=== PATIENT | female | born 1965 | race Two or more races ===

== ENCOUNTER 2024-06-14 16:53 | Inpatient (IN) | payer MEDICAID ==
[~2024-06-14] VITALS: Ht 157.5 cm; Wt 103.9 kg
[2024-06-14 17:26] LABS: Basophils # (auto) 0.1 10 ^3/uL (0-0.2); Basophils % (auto) 0.8 % (0.0-2.0); Eosinophils # (auto) 0.7 10 ^3/uL (0-0.8); Eosinophils % (auto) 10.7 % (0.0-7.0); Hematocrit 46.2 % (36.0-46.0); Hemoglobin 15.8 g/dL (12.2-16.2); Lymphocytes # (auto) 2.5 10 ^3/uL (0.4-5.4); Lymphocytes % (auto) 38.3 % (10.0-50.0); Mean Corpuscular Hemoglobin 30.9 pg (28.0-32.0); Mean Corpuscular Hgb Conc. 34.3 g/dL (32.0-36.0); Mean Corpuscular Volume 90.3 fL (80.0-100.0); Monocytes # (auto) 0.6 10 ^3/uL (0-1.3); Monocytes % (auto) 9.1 % (0.0-12.0); Neutrophils # (auto) 2.7 10 ^3/uL (1.6-8.6); Neutrophils % (auto) 41.1 % (37.0-80.0); Nucleated Red Blood Cells % 0.6 %; Platelet Count (auto) 287 10^3/uL (140-450); Red Blood Cells 5.11 10^6/uL (4.0-5.20); Red Cell Distribution Width 13.2 % (11.8-14.3); White Blood Cell 6.5 10^3/uL (4.4-10.8)
[2024-06-14] MEDS: ASPirin 325 MG TAB PO ONE (17:35)
[2024-06-14] MEDS: NITROGLYCERIN 0.4 MG SL TAB SL ONE (17:35)
[2024-06-14 17:45] LABS: Alanine Aminotransferase 39 U/L (7-40); Alkaline Phosphatase 99 U/L (46-116); Anion Gap 8 (5-15); Aspartate Aminotransferase 25 U/L (13-40); BUN/Creatinine Ratio 21.7 (10.0-20.0); Blood Urea Nitrogen 18 mg/dL (9-23); Calcium 10.3 mg/dL (8.7-10.4); Carbon Dioxide 27 mmol/L (20-31); Chloride 105 mmol/L (98-107); Glucose 86 mg/dL (74-106); Potassium 3.9 mmol/L (3.5-5.1); Sodium 140 mmol/L (136-145)
[2024-06-14] MEDS ORDERED: ONDANSETRON HCL 4 MG/2 ML VIAL IV PRN (17:45)
[2024-06-14] MEDS ORDERED: NITROGLYCERIN 0.4 MG SL TAB SL PRN ×2 (17:45→18:00)
[2024-06-14] MEDS ORDERED: MORPHINE SULFATE INJ 2 MG/ml SYRG IV PRN (17:45)
[2024-06-14 17:46] LABS: Albumin 4.8 g/dL (3.2-4.8); Bilirubin, Total 0.7 mg/dL (0.2-1.0); Total Protein 7.8 g/dL (5.7-8.2)
[2024-06-14 17:53] LABS: Urine Bacteria FEW /hpf (None Seen); Urine Blood Negative /uL (Negative); Urine Clarity Clear (Clear); Urine Color Light-Yellow (Yellow); Urine Protein, UAD Negative (Negative); Urine Urobilinogen Normal (Negative); Urine WBC 1 /hpf (0 - 5); Urine pH 6.5 (5.0-9.0)
[2024-06-14 20:10] VITALS: PULSE 62; RESP 16; O2SAT 96
[2024-06-14 21:30] VITALS: BP 136/63; PULSE 65; RESP 19; TEMP 97.6; O2SAT 94
[2024-06-14 21:55] VITALS: PULSE 63
[2024-06-15] VITALS (7 sets, daily range): BP systolic 133–168; BP diastolic 55–76; PULSE 55–71; RESP 16–21; TEMP 37.1; O2SAT 95–97
[2024-06-15 07:07] LABS: Alanine Aminotransferase 31 U/L (7-40); Albumin 4.2 g/dL (3.2-4.8); Alkaline Phosphatase 80 U/L (46-116); Anion Gap 6 (5-15); Blood Urea Nitrogen 15 mg/dL (9-23); Calcium 9.8 mg/dL (8.7-10.4); Carbon Dioxide 29 mmol/L (20-31); Chloride 106 mmol/L (98-107); Glucose 108 mg/dL (74-106); Potassium 3.8 mmol/L (3.5-5.1); Sodium 141 mmol/L (136-145)
[2024-06-15 07:08] LABS: Aspartate Aminotransferase 20 U/L (13-40); Total Protein 7.1 g/dL (5.7-8.2)
[2024-06-15 07:11] LABS: Basophils # (auto) 0 10 ^3/uL (0-0.2); Basophils % (auto) 0.7 % (0.0-2.0); Eosinophils # (auto) 0.6 10 ^3/uL (0-0.8); Eosinophils % (auto) 11.1 % (0.0-7.0); Hematocrit 43.3 % (36.0-46.0); Hemoglobin 15.2 g/dL (12.2-16.2); Lymphocytes # (auto) 2.2 10 ^3/uL (0.4-5.4); Lymphocytes % (auto) 39.1 % (10.0-50.0); Mean Corpuscular Hemoglobin 31.4 pg (28.0-32.0); Mean Corpuscular Hgb Conc. 35.2 g/dL (32.0-36.0); Mean Corpuscular Volume 89.3 fL (80.0-100.0); Monocytes # (auto) 0.5 10 ^3/uL (0-1.3); Monocytes % (auto) 9.3 % (0.0-12.0); Neutrophils # (auto) 2.3 10 ^3/uL (1.6-8.6); Neutrophils % (auto) 39.8 % (37.0-80.0); Nucleated Red Blood Cells % 0.3 %; Platelet Count (auto) 225 10^3/uL (140-450); Red Blood Cells 4.85 10^6/uL (4.0-5.20); Red Cell Distribution Width 13.4 % (11.8-14.3); White Blood Cell 5.7 10^3/uL (4.4-10.8)
[2024-06-15] MEDS ORDERED: UBRO100T2 PO (16:14)
[2024-06-15] MEDS: SUMAtriptan SUCCINATE 25 MG TAB PO ONE (17:35)
== END 2024-06-15 18:30 | disposition home or self-care (01) | DRG 199 ==
LOC: ER 16:57 → TELE 17:44 → TELE-WESTW 21:22
PROVIDERS: ADMIT Nurse Practitioner; ATTEND Nurse Practitioner
DX: I16.0 Hypertensive urgency (principal); E66.01 Morbid (severe) obesity due to excess calories; G43.909 Migraine, unspecified, not intractable, without status migrainosus; I10 Essential (primary) hypertension; M79.7 Fibromyalgia; Z82.49 Family history of ischemic heart disease and other diseases of the circulatory system; Z68.41 Body mass index [BMI] 40.0-44.9, adult
CPT/HCPCS: 36415; 71045; 80053; 81001; 84484; 85025; 93005; 93306; 99291; G0378

== ENCOUNTER 2025-05-19 14:07 | Emergency (ER) | payer MEDICAID ==
[~2025-05-19] VITALS: Ht 157.5 cm; Wt 88.4 kg
[~2025-05-19 14:07] MED LIST: UBRO100T2 PO
[2025-05-19 14:08] VITALS: BP 158/65; PULSE 73; RESP 16; TEMP 98.5; O2SAT 97
--- NOTE | 2025-05-19 14:35 | ED.PDOC ---
History of Present Illness(SKN HPI Comments A 59 YEAR OLD FEMALE PRESENTS TO THE ED WITH COMPLAINT OF RASH. PATIENT STATES SHE HAS BEEN EXPERIENCING A RASH ON HER BILATERAL ARMS FOR THE PAST 6 DAYS. PATIENT REPORTS SHE WENT TO AN URGENT CARE 3 DAYS AGO WHERE SHE WAS PRESCRIBED TRIAMCINOLONE CREAM, BUT NOTES THERE HAS BEEN NO IMPROVEMENT IN HER RASH. PATIENT DENIES FEVER, CHILLS, SHORTNESS OF BREATH, CHEST PAIN, ABDOMINAL PAIN, NAUSEA, VOMITING, HEADACHE, OR OTHER COMPLAINTS. NO OTHER SYMPTOMS OR MODIFYING FACTORS AT THIS TIME. PATIENT IS ALERT, ORIENTED X 4, AND HAS STEADY GAIT. Chief Complaint: Rash Time Seen by MD: 14:13 History of Present Illness: Nurses Notes, Medications, Allergies Allergies: Coded Allergies: NO KNOWN ALLERGIES (Unverified , 11/28/23) Home Meds Active Scripts Hydroxyzine Hcl (Hydroxyzine Hcl) 50 Mg Tab, 1 TAB PO BID, #30 TAB Prov:JACOB VELIZ 05/19/25 Prednisone (Prednisone) 20 Mg Tab, 60 MG PO DAILY, #24 MG Prov:JACOB VELIZ 05/19/25 Ubrogepant (Ubrelvy) 100 Mg Tab, 100 MG PO DAILY, #12 TAB Prov:CARLOS A MORILLO NP 06/15/24 Information Source: Patient Mode of Arrival: Ambulatory Severity: Mild, Moderate Timing: Days Duration: Since onset, Days Prehospital treatment: None Location: Arm (BILATERAL ARMS) Mechanism: Spontaneous Onset Developed: Rash Occurence: Indoors Object: None Condition of Object: None Wound Type: None Immunization Status of Animal: Current, NA Tetanus: UTD, Unknown History of: None Associated Signs and Symptoms: Redness Past Medical History PAST MEDICAL HISTORY: HTN Surgical History: WORM PICKER History: Denies all WORM PICKER Hx Family History Family History: Reviewed,noncontributory to illness Social History Smoker: Non-Smoker Alcohol: Denies ETOH Use Drugs: Denies Drug Use Lives In: Home Constitutional: denies: chills, diaphoresis, fatigue, fever, malaise, sweats, weakness, others EENTM: denies: blurred vision, double vision, ear bleeding, ear discharge, ear drainage, ear pain, ear ringing, eye pain, eye redness, hearing loss, mouth pain, mouth swelling, nasal discharge, nose bleeding, nose congestion, nose pain, photophobia, tearing, throat pain, throat swelling, voice changes, others Respiratory: denies: cough, hemoptysis, orthopnea, SOB at rest, shortness of breath, SOB with excertion, stridor, wheezing, others Cardiovascular: denies: chest pain, dizzy spells, diaphoresis, Dyspnea on exertion, edema, irregular heart beat, left arm pain, lightheadedness, palpitations, PND, syncope, others Gastrointestinal: denies: abdomen distended, abdominal pain, blood streaked bowels, constipated, diarrhea, dysphagia, difficulty swallowing, hematemesis, melena, nausea, poor appetite, poor fluid intake, rectal bleeding, rectal pain, vomiting, others Genitourinary: denies: abnormal vagina bleeding, burning, dyspareunia, dysuria, flank pain, frequency, hematuria, incontinence, pain, , vagina discharge, urgency, others Neurological: denies: dizziness, fainting, headache, left sided numbness, left sided weakness, numbness, paresthesia, pre-existing deficit, right sided numbness, right sided weakness, seizure, speech problems, tingling, tremors, weakness, others Musculoskeletal: denies: back pain, gout, joint pain, joint swelling, muscle pain, muscle stiffness, neck pain, others Integumetry: reports: lumps, rash; denies: bruises, change in color, change in hair/nails, dryness, laceration, lesions, wounds, others Allergic/Immunocompromised: reports: Hives, Itching; denies: Difficulty Healing, Frequent Infections, others Hematologic/Lymphatic: denies: anemia, blood clots, easy bleeding, easy bruising, swollen glands, others Endocrine: denies: excessive hunger, excessive sweating, excessive thirst, excessive urination, flushing, intolerance to cold, intolerance to heat, unexplained weight gain, unexplained weight loss, others Psychiatric: denies: anxiety, bipolar disorder, depression, hopeless, panic disorder, schizophrenia, sleepless, suicidal, others All Other Systems: Reviewed and Negative Physical Exam General Appearance: No Apparent Distress, Obese HEENT: Normal ENT Inspection, PERRL/EOMI, Pharynx Normal, TMs Normal Neck: Full Range of Motion, Non-Tender, Normal, Normal Inspection Respiratory: Chest Non-Tender, Lungs Clear, No Accessory Muscle Use, No Respiratory Distress, Normal Breath Sounds Cardiovascular: No Edema, No JVD, No Murmur, No Gallop, Normal Peripheral Pulses, Regular Rate/Rhythm Breast Exam: Deferred Gastrointestinal: No Organomegaly, Non Tender, No Pulsatile Mass, Normal Bowel Sounds, Soft Genitalia: Deferred Pelvic: Deferred Rectal: Deferred Extremities: No calf tenderness, Normal capillary refill, Normal inspection, Normal range of motion, Non-tender, No pedal edema Musculoskeletal : Apperance: Normal Neurologic: Alert, facility rehab director II-XII nml as Tested, No Motor Deficits, Normal Affect, Normal Mood, No Sensory Deficits Cerebellar Function: Normal Reflexes: Normal Skin: Dry, Rash (ERYTHEMA SKIN RASH WITH HIVES ON BILATERAL UPPER EXTREMITY, NO TENDERNESS AND SWELLING. ), Warm Peripheral Pulses: 2+ carotid (R), 2+ carotid (L) Lymphatic: No Adenopathy Was a procedure done? Was a procedure done?: No Differential Diagnosis (INTG) Differential Diagnosis: N/A Differential Diagnosis: Atopic dermatitis, Contact Dermatitis, Tinea, Urticaria, Other (ALLERGIC REACTION) Differential Diagnosis: N/A Abscess: N/A Differential Diagnosis: N/A X-Ray, Labs, Meds, VS Vital Signs Date Time Temp Pulse Resp B/P (MAP) Pulse Ox O2 Delivery O2 Flow Rate FiO2 05/19/25 14:08 98.5 73 16 158/65 97 98.5 X-Ray, Labs, Meds, VS Comment EXTERNAL MEDICAL RECORDS REVIEWED: [NONE] INDEPENDENT HISTORIANS: [NONE] SOCIAL DETERMINANTS OF HEALTH: [NONE] LABS ORDERED: NONE REVIEWED AND INTERPRETED RESULTS: NONE IMAGING ORDERED: NONE TREATMENTS ORDERED: EPINEPHRINE 0.3 MG IM, SOLU-MEDROL 125 MG IM PROCEDURES PERFORMED: NONE CRITICAL CARE TIME: NONE I HAVE DISCUSSED THE PATIENT WITH THE ATTENDING PHYSICIAN DR. ELAM AND HE AGREES WITH THE PATIENT'S PLAN OF CARE AND DISPOSITION. BASED ON HISTORY OF PRESENT ILLNESS, AND PHYSICAL EXAM, PATIENT WILL BE DISCHARGED HOME. DISCUSSED PLAN FOR DISCHARGE HOME WITH RX [PREDNISONE AND VISTARIL 50MG]. MEDICATION WARNINGS GIVEN. SHARED DECISION MAKING: PATIENT INSTRUCTED TO FOLLOW UP WITH PRIMARY CARE PROVIDER IN 1-2 DAYS FOR RE-EVALUATION OF SYMPTOMS. PATIENT VERBALIZES UNDERSTANDING TO RETURN TO ED FOR NEW OR WORSENING SYMPTOMS OR IF FOLLOW UP WITH PCP CANNOT BE OBTAINED. PATIENT FEELS COMFORTABLE GOING HOME AT THIS TIME. ALL QUESTIONS ADDRESSED AT TIME OF DISCHARGE. Time of 1ST Reevaluation: 15:00 Reevaluation 1ST: Improved Patient Education/Counseling: Diagnosis, Treatment, Need For Follow Up Family Education/Counseling: Diagnosis, Treatment, Need For Follow Up Medical Screening: No EMC Exist At This Time SEPSIS Sepsis Screen Date sepsis recognized/suspect: May 19, 2025 Time Sepsis recognized/suspect: 1408 Recent Procedure: No On Antibiotic Therapy: No Respiratory Rate >20: No Heart Rate >90: No Temp<36 C (96.8 F) or >38.3 C: No SBP <90 or MAP <65 mmHG: No New Acute Mental Status Change: No Is the patient on CPAP, BIPAP,: No Physician Orders Epinephrine Hcl Injection (05/19/25 14:45) Methylprednisolone Sod Succ (Solu Medrol (05/19/25 14:45) Vital Signs Date Time Temp Pulse Resp B/P (MAP) Pulse Ox O2 Delivery O2 Flow Rate FiO2 05/19/25 14:08 98.5 73 16 158/65 97 98.5 Departure 1 Departure Time of Disposition: 15:00 Impression: Primary Impression: Allergic reaction Qualified Codes: T78.40XA - Allergy, unspecified, initial encounter Disposition: HOME / SELF CARE / HOMELESS Condition: Stable Additional Instructions: FOLLOW-UP WITH PCP IN 1 TO 2 DAYS. TAKE MEDICATIONS PRESCRIBED. RETURN TO ED FOR ANY NEW OR WORSENING SYMPTOMS. e-Prescriptions Hydroxyzine Hcl (Hydroxyzine Hcl) 50 Mg Tab 1 TAB PO BID, #30 TAB Prov: JACOB VELIZ 05/19/25 Prednisone (Prednisone) 20 Mg Tab 60 MG PO DAILY, #24 MG Prov: JACOB VELIZ 05/19/25 Discharged With: Self, Spouse Critical Care Note Critical Care Time?: No Stability Stability form required: No I personally scribed for JACOB VELIZ ([email or web address]) on 05/19/25 at 14:35. Electronically submitted by Joseph Meza ([email or web address]). JACOB VELIZ May 19, 2025 14:35
[2025-05-19] MEDS ORDERED: HYDR50TA69 PO (14:40)
[2025-05-19] MEDS ORDERED: PRED20TA2 PO (14:40)
[2025-05-19] MEDS: methylPREDNISolone SOD SUCC 125 MG/2 ML VL IM ONE (14:42)
== END 2025-05-19 14:45 | disposition home or self-care (01) ==
LOC: ER 14:08
DX: L50.9 Urticaria, unspecified (principal); T78.40XA Allergy, unspecified, initial encounter; I10 Essential (primary) hypertension; X58.XXXA Exposure to other specified factors, initial encounter
CPT/HCPCS: 96372; 99284; J0169; J2919